=== PATIENT | female | born 1995 | race Caucasian/White ===

== ENCOUNTER 2017-08-11 15:29 | Emergency (ER) | payer OTHER ==
[2017-08-11 16:21] LABS: URINE HCG POC HCG NEGATIVE (Negative)
== END 2017-08-11 17:11 | disposition home or self-care (01) ==
LOC: ER 15:29
DX: R07.89 Other chest pain (principal); F17.210 Nicotine dependence, cigarettes, uncomplicated; Z88.1 Allergy status to other antibiotic agents; Z88.8 Allergy status to other drugs, medicaments and biological substances
CPT/HCPCS: 71110; 81025; 93005; 99284-25

== ENCOUNTER → 2019-06-02 | Outpatient (CLI) | payer OTHER ==
[2017-08-11 15:40] VITALS: BP 128/60
[~2019-06-02] MED LIST: IBUP-1060 PO
--- NOTE | 2019-06-02 17:03 | RAD ---
PELVIS COMPLETE History: Dyspareunia, menorrhagia, dysmenorrhea Comparison: None. Findings: Multiple transabdominal sonographic images of the pelvis are submitted. Uterus measured 7.3 x 3.8 x 3.3 cm. Endometrium measured 0.4 cm in thickness. Right ovary measured 3.1 x 2.4 x 2.9 cm with normal low resistance vascularity. Left ovary measured up to 6.2 x 4.9 x 4.9 cm, includes focus of abnormal echogenicity. There is a hypoechoic lesion with diffuse internal echoes of the left ovary on the order of 4.8 x 3 cm. There is normal low resistance vascularity of the left ovary, no significant hypervascularity of the hypoechoic lesion. No significant free fluid is demonstrated. Impression: 1. There is a hypoechoic lesion with diffuse internal echoes of the left ovary up to 4.8 cm which may be complex or hemorrhagic cyst although short-term follow-up such as in 2-3 months advised. There is no significant free fluid. Electronically signed by: Jon Cullen MD (06/02/2019 5:00 PM) [id number]
== END | disposition home or self-care (01) ==
LOC: US 15:21
PROVIDERS: ATTEND Obstetrics & Gynecology
DX: N83.8 Other noninflammatory disorders of ovary, fallopian tube and broad ligament (principal)
CPT/HCPCS: 76856

== ENCOUNTER → 2019-06-06 | Outpatient (CLI) | payer OTHER ==
[2017-08-11 15:40] VITALS: BP 128/60
[2019-06-06 07:50] LABS: BASO # 0.1 x10^3/uL (0.0-0.2); BASO % 1 % (0-3); EOS # 0.3 x10^3/uL (0.0-0.7); EOS % 4 % (0-3); HEMATOCRIT 43.2 % (36.0-47.0); HEMOGLOBIN 14.4 g/dL (12.0-15.5); LYMPH # 2.6 x10^3/uL (1.0-4.8); LYMPH % 35 % (24-48); MEAN CORPUSCULAR HEMOGLOBIN 29 pg (25-35); MEAN CORPUSCULAR HGB CONC 33 g/dL (31-37); MEAN CORPUSCULAR VOLUME 86 fL (79-100); MONO # 0.5 x10^3/uL (0.0-1.1); MONO % 7 % (0-9); NEUT % 54 % (31-73); PLATELET COUNT 255 x10^3/uL (140-400); RED BLOOD COUNT 5.04 x10^6/uL (3.50-5.40); RED CELL DISTRIBUTION WIDTH 15.2 % (11.5-14.5); WHITE BLOOD COUNT 7.5 x10^3/uL (4.0-11.0)
[2019-06-06 08:07] LABS: ALBUMIN 3.9 g/dL (3.4-5.0); ALBUMIN/GLOBULIN RATIO 1.3 (1.0-1.7); CALCIUM 8.9 mg/dL (8.5-10.1); CREATININE 0.6 mg/dL (0.6-1.0); GFR 122.8; TOTAL BILIRUBIN 0.1 mg/dL (0.2-1.0)
[2019-06-06 08:09] LABS: CHOLESTEROL/HDL RATIO 4.8
[2019-06-06 14:10] LABS: ESTRADIOL LEVEL 47.7 pg/mL (.); FSH 5.6 mIU/mL (.); LUTEINIZING HORMONE 20.7 mIU/mL (.); PROLACTIN 28.8 ng/mL (4.8-23.3)
[2019-06-07 00:07] LABS: HEMOGLOBIN A1C 5.3 % (4.8-5.6)
[2019-06-09 10:11] LABS: TESTOSTERONE FREE 0.62 ng/dL (0.10-0.85)
== END | disposition home or self-care (01) ==
LOC: LAB 07:23
PROVIDERS: ATTEND Obstetrics & Gynecology
DX: N92.0 Excessive and frequent menstruation with regular cycle (principal)
CPT/HCPCS: 36415; 80053; 80061; 82306; 82627; 82670; 83001; 83002; 83036; 83525; 84146; 84402; 84403; 84443; 85025

== ENCOUNTER → 2019-08-25 | Outpatient (CLI) | payer OTHER ==
[2017-08-11 15:40] VITALS: BP 128/60
--- NOTE | 2019-08-25 16:41 | RAD ---
PELVIS W/TV History: Pelvic pain, left ovarian cyst Comparison: June 02, 2019 Findings: Multiple transabdominal sonographic images of the pelvis are submitted. Uterus measured 4.2 x 3.3 x 9.1 cm. Endometrium measured 0.9 cm in thickness. Right ovary measured 2 x 3 x 1.7 cm with normal color flow and low resistance vascularity. Left ovary measured about 6 x 5 x 6.5 cm. There is persistent, avascular focus of abnormal echogenicity associated with the left ovary about 6.6 x 4.8 x 4.1 cm with diffuse internal echoes. This measures larger as previously about 4.8 x 3 x 3.6 cm. There is normal low resistance vascularity of the left ovary. There is very minimal free fluid in the cul-de-sac. Impression: 1. There is a larger focus of abnormal echogenicity associated with the left ovary with diffuse internal echoes, not significantly hypervascular. Given persistence and larger size rather than regression, pelvis MRI could be beneficial. If this is not performed, continued short-term follow-up such as in 2 months is recommended. Endometrioma would be included in the differential considerations. There is minimal free fluid in the cul-de-sac. Electronically signed by: Jon Cullen MD (08/25/2019 4:38 PM) [id number]
== END | disposition home or self-care (01) ==
LOC: US 10:00
PROVIDERS: ATTEND Obstetrics & Gynecology
DX: Z09 Encounter for follow-up examination after completed treatment for conditions other than malignant neoplasm (principal); N80.1 Endometriosis of ovary; R10.2 Pelvic and perineal pain; N83.202 Unspecified ovarian cyst, left side
CPT/HCPCS: 76830; 76856

== ENCOUNTER → 2019-09-02 | Outpatient (CLI) | payer OTHER ==
[2017-08-11 15:40] VITALS: BP 128/60
== END ==
LOC: LAB 07:49
PROVIDERS: ATTEND Obstetrics & Gynecology
DX: N83.202 Unspecified ovarian cyst, left side (principal)
CPT/HCPCS: 36415; 86304

== ENCOUNTER → 2019-09-14 | Outpatient (CLI) | payer OTHER ==
[2017-08-11 15:40] VITALS: BP 128/60
[~2019-09-14] MED LIST changes: +GADOTERATE 7.5 MMOL/15ML VIAL. IVP ONE
--- NOTE | 2019-09-14 10:01 | RAD ---
PELVIS WO/W CONTRAST: 09/14/2019 8:15 AM INDICATION: 24 years old Female. Left ovarian cyst COMPARISON: Pelvic ultrasound August 25, 2019. TECHNIQUE: Multiplanar multisequence MR imaging of the pelvis was performed before and following intravenous administration of gadolinium contrast agent. FINDINGS: UTERUS: Orientation: Anteverted. Size: 8.6 x 4.2 x 5.6 cm. Masses: None. Endometrium: 31 mm. There is a circumscribed T2 hyperintense area within the endometrium measuring 1.5 x 1.2 cm with low T1 signal. Fluid is noted within the endometrium. Junctional zone: Junctional zone measures up to 6 mm, within normal limits. Cervix: Unremarkable. RIGHT OVARY: 1.9 x 1.1 x 2.4 cm. No ovarian mass. LEFT OVARY: 6.1 x 6.9 x 5.7 cm. There are 2 circumscribed T1 hyperintense, nonenhancing masses with internal debris, largest of which measures 6.0 x 4.7 x 4.9 cm. No definite enhancing septations or mural nodularity. Layering dependent blood products are suspected with T2 signal hypointensity and mild T1 signal hyperintensity. FREE FLUID: There is a small amount of free fluid within the pelvis, physiologic in amount. URINARY BLADDER: Unremarkable. BOWEL: Visualized bowel unremarkable. LYMPH NODES: Unremarkable. BONES: No suspicious osseous abnormality. IMPRESSION: 1. Left ovarian mass has signal intensity most suggestive of a hemorrhagic cyst, although endometrioma could have similar appearance. Within the smaller T1 hyperintense lesion, there is a circumscribed nodule with intrinsic T1 signal hyperintensity and T2 signal hypointensity (on fat-saturated images) which could represent blood products or fat. This finding is along the dependent portion of the cyst, most suggestive of blood products. No fat fluid level is identified to suggest a dermoid. 2. Thickened endometrium with a circumscribed cystic process measuring 1.5 x 1.2 cm. Consideration may be given for blood products and correlation with menstrual cycle is recommended. Correlation with beta-hCG may be of benefit to exclude a gestational sac/early . 3. Small volume free fluid is identified within the pelvis appear simple. Electronically signed by: Danitza Roche MD (09/14/2019 9:59 AM) [facility]
== END ==
LOC: MRI 07:43
PROVIDERS: ATTEND Obstetrics & Gynecology
DX: N83.202 Unspecified ovarian cyst, left side (principal); R93.89 Abnormal findings on diagnostic imaging of other specified body structures
CPT/HCPCS: 72197; A9575

== ENCOUNTER → 2019-09-19 | Outpatient (CLI) | payer OTHER ==
[2017-08-11 15:40] VITALS: BP 128/60
[~2019-09-19] MED LIST changes: -GADOTERATE 7.5 MMOL/15ML VIAL. IVP ONE
[2019-09-19 16:38] LABS: BASO # 0.1 x10^3/uL (0.0-0.2); BASO % 1 % (0-3); EOS # 0.2 x10^3/uL (0.0-0.7); EOS % 2 % (0-3); HEMATOCRIT 39.2 % (36.0-47.0); HEMOGLOBIN 13.3 g/dL (12.0-15.5); LYMPH # 2.2 x10^3/uL (1.0-4.8); LYMPH % 20 % (24-48); MEAN CORPUSCULAR HEMOGLOBIN 29 pg (25-35); MEAN CORPUSCULAR HGB CONC 34 g/dL (31-37); MEAN CORPUSCULAR VOLUME 84 fL (79-100); MONO # 0.8 x10^3/uL (0.0-1.1); MONO % 7 % (0-9); NEUT # 7.7 x10^3/uL (1.8-7.7); NEUT % 70 % (31-73); PLATELET COUNT 277 x10^3/uL (140-400); RED BLOOD COUNT 4.68 x10^6/uL (3.50-5.40); RED CELL DISTRIBUTION WIDTH 14.2 % (11.5-14.5)
[2019-09-20 00:07] LABS: PROGESTERONE 20.6 ng/mL (.)
== END | disposition home or self-care (01) ==
LOC: LAB 15:51
PROVIDERS: ATTEND Nurse Practitioner Family
DX: Z32.01 Encounter for pregnancy test, result positive (principal)
CPT/HCPCS: 36415; 84144; 84702; 85025; 86592; 86703; 86762; 86850; 86900; 86901; 87340

== ENCOUNTER → 2019-09-20 | Outpatient (CLI) | payer OTHER ==
[2017-08-11 15:40] VITALS: BP 128/60
== END | disposition home or self-care (01) ==
LOC: SPEC 11:29
PROVIDERS: ATTEND Obstetrics & Gynecology
DX: Z32.01 Encounter for pregnancy test, result positive (principal)
CPT/HCPCS: 87086; 87491; 87591

== ENCOUNTER → 2019-10-14 | Outpatient (CLI) | payer OTHER ==
[2017-08-11 15:40] VITALS: BP 128/60
[2019-10-14 12:04] LABS: BASO # 0.1 x10^3/uL (0.0-0.2); BASO % 1 % (0-3); EOS # 0.2 x10^3/uL (0.0-0.7); EOS % 2 % (0-3); HEMATOCRIT 37.2 % (36.0-47.0); HEMOGLOBIN 12.6 g/dL (12.0-15.5); LYMPH % 18 % (24-48); MEAN CORPUSCULAR HEMOGLOBIN 29 pg (25-35); MEAN CORPUSCULAR HGB CONC 34 g/dL (31-37); MEAN CORPUSCULAR VOLUME 84 fL (79-100); MONO # 0.7 x10^3/uL (0.0-1.1); MONO % 6 % (0-9); NEUT # 8.1 x10^3/uL (1.8-7.7); NEUT % 73 % (31-73); PLATELET COUNT 229 x10^3/uL (140-400); RED CELL DISTRIBUTION WIDTH 14.8 % (11.5-14.5); WHITE BLOOD COUNT 11.1 x10^3/uL (4.0-11.0)
== END | disposition home or self-care (01) ==
LOC: LAB 10:02
PROVIDERS: ATTEND Obstetrics & Gynecology
DX: Z32.01 Encounter for pregnancy test, result positive (principal); O21.0 Mild hyperemesis gravidarum
CPT/HCPCS: 36415; 81220; 85025; 86592; 86703; 86762; 86850; 86900; 86901; 87340

== ENCOUNTER 2019-11-15 08:17 | Emergency (ER) | payer OTHER ==
[~2019-11-15] VITALS: Ht 162.6 cm; Wt 94.3 kg
[2019-11-15 10:39] LABS: BILIRUBIN,URINE NEGATIVE (NEG); CLARITY,URINE CLEAR; COLOR,URINE YELLOW; NITRITE,URINE NEGATIVE (NEG); PROTEIN,URINE NEGATIVE (NEG-TRACE); UROBILINOGEN,URINE 0.2 mg/dL (0.2 mg/dL)
[2019-11-15 10:50] LABS: SQUAMOUS EPITHELIAL CELL,UR MOD /LPF
[2019-11-15 10:51] LABS: BACTERIA,URINE FEW /HPF (0-FEW); RBC,URINE OCC /HPF (0-2); WBC,URINE OCC /HPF (0-4)
--- NOTE | 2019-11-15 11:30 | RAD ---
EXAM: Obstetrics sonogram. HISTORY: Groin pain and . TECHNIQUE: Sonographic imaging of a gravid uterus and the inguinal regions was performed. COMPARISON: 09/23/2019. FINDINGS: There is a single intrauterine fetus in transverse presentation with a normal heart rate of 145 bpm. There is a posterior placenta without evidence of placenta previa. The cervix is long and closed. The amniotic fluid index is normal at 10.2 cm. The anatomy is not formally assessed. The biparietal diameter is 2.77 cm, corresponding with 15 weeks and 0 days. The head circumference is 10.3 cm, corresponding with 14 weeks and 6 days. The abdominal circumference is 8.91 cm, corresponding with 15 weeks and 1 day. The femoral length is 1.63 cm, corresponding with 14 weeks and 6 days. The estimated gestational age patient combined ultrasound measurements is 15 weeks and 0 days. There is a large left ovarian cyst measuring 6.0 cm. There is normal blood flow within both ovaries. There is no pelvic free fluid. IMPRESSION: 1. Single intrauterine fetus with normal heart rate and gestational age patient also measurements of 15 weeks and 0 days. The gestational age based on LMP is 14 weeks and 5 days. 2. 6.0 cm left ovarian cyst. This is more simple in appearance compared to the prior exam dated 09/23/2019, possibly due to differences in imaging technique. The overall size is not signally changed. Continued short-term follow-up is recommended. Electronically signed by: Rocio Jordan MD (11/15/2019 11:26 AM) [id number]
[2019-11-15 12:00] VITALS: BP 120/66
--- NOTE | 2019-11-15 12:48 | PHYS DOC ---
Past Medical History Past Medical History: No Pertinent History, Anxiety Past Surgical History: Tonsillectomy Smoking Status: Former Smoker Alcohol Use: None Drug Use: None General Adult EDM: Chief Complaint: ABDOMINAL PAIN IN HPI: HPI: Patient is a 24-year-old female who is approximately 14 weeks who presents with lower abdominal discomfort. She denies any vaginal bleeding or discharge. She has not had any dysuria or gross hematuria. She denies fever chills or sweats. She has not had any nausea or vomiting secondary to the pain. She states she has had an initial ultrasound which apparently was okay. [] Review of Systems: Review of Systems: Constitutional: Denies fever or chills. [] Eyes: Denies change in visual acuity. [] HENT: Denies nasal congestion or sore throat. [] Respiratory: Denies cough or shortness of breath. [] Cardiovascular: Denies chest pain or edema. [] GI: Per HPI [] : Denies dysuria. [] Musculoskeletal: Denies back pain or joint pain. [] Integument: Denies rash. [] Neurologic: Denies headache, focal weakness or sensory changes. [] Endocrine: Denies polyuria or polydipsia. [] Lymphatic: Denies swollen glands. [] Psychiatric: Denies depression or anxiety. [] Heart Score: Risk Factors: Risk Factors: DM, Current or recent (<one month) smoker, HTN, HLP, family history of CAD, obesity. Risk Scores: Score 0 - 3: 2.5% MACE over next 6 weeks - Discharge Home Score 4 - 6: 20.3% MACE over next 6 weeks - Admit for Clinical Observation Score 7 - 10: 72.7% MACE over next 6 weeks - Early Invasive Strategies Allergies: Allergies: Allergies Coded Allergies Type Severity Reaction Last Updated Verified amoxicillin Allergy Mild vomiting 05/30/15 Yes clavulanic acid Allergy Mild vomiting 05/30/15 Yes Physical Exam: PE: Constitutional: Well developed, well nourished, no acute distress, non-toxic appearance. [] HENT: Normocephalic, atraumatic, bilateral external ears normal, oropharynx moist, no oral exudates, nose normal. [] Eyes: PERRLA, EOMI, conjunctiva normal, no discharge. [] Neck: Normal range of motion, no tenderness, supple, no stridor. [] Cardiovascular:Heart rate regular rhythm, no murmur [] Lungs & Thorax: Bilateral breath sounds clear to auscultation [] Abdomen: Bowel sounds normal, soft, no tenderness, no masses, no pulsatile masses. [] Skin: Warm, dry, no erythema, no rash. [] Back: No tenderness, no CVA tenderness. [] Extremities: No tenderness, no cyanosis, no clubbing, ROM intact, no edema. [] Neurologic: Alert and oriented X 3, normal motor function, normal sensory function, no focal deficits noted. [] Psychologic: Affect normal, judgement normal, mood normal. [] Current Patient Data: Labs: Laboratory Tests Test 11/15/19 09:45 Urine Collection Type Void Urine Color Yellow Urine Clarity Clear Urine pH 8.0 (<5.0-8.0) Urine Specific Divide 1.010 (1.000-1.030) Urine Protein Negative mg/dL (NEG-TRACE) Urine Glucose (UA) Negative mg/dL (NEG) Urine Ketones (Stick) Negative mg/dL (NEG) Urine Blood Negative (NEG) Urine Nitrite Negative (NEG) Urine Bilirubin Negative (NEG) Urine Urobilinogen Dipstick 0.2 mg/dL (0.2 mg/dL) Urine Leukocyte Esterase Negative (NEG) Urine RBC Occ /HPF (0-2) Urine WBC Occ /HPF (0-4) Urine Squamous Epithelial Cells Mod /LPF Urine Bacteria Few /HPF (0-FEW) Vital Signs: Vital Signs Date Time Temp Pulse Resp B/P (MAP) Pulse Ox O2 Delivery O2 Flow Rate FiO2 11/15/19 09:55 98.9 77 16 136/60 (85) 100 Room Air 98.9 EKG: EKG: [] Radiology/Procedures: Radiology/Procedures: []PROCEDURE: PREG MORE THAN OR EQ TO 14 WKS EXAM: Obstetrics sonogram. HISTORY: Groin pain and . TECHNIQUE: Sonographic imaging of a gravid uterus and the inguinal regions was performed. COMPARISON: 09/23/2019. FINDINGS: There is a single intrauterine fetus in transverse presentation with a normal heart rate of 145 bpm. There is a posterior placenta without evidence of placenta previa. The cervix is long and closed. The amniotic fluid index is normal at 10.2 cm. The anatomy is not formally assessed. The biparietal diameter is 2.77 cm, corresponding with 15 weeks and 0 days. The head circumference is 10.3 cm, corresponding with 14 weeks and 6 days. The abdominal circumference is 8.91 cm, corresponding with 15 weeks and 1 day. The femoral length is 1.63 cm, corresponding with 14 weeks and 6 days. The estimated gestational age patient combined ultrasound measurements is 15 weeks and 0 days. There is a large left ovarian cyst measuring 6.0 cm. There is normal blood flow within both ovaries. There is no pelvic free fluid. IMPRESSION: 1. Single intrauterine fetus with normal heart rate and gestational age patient also measurements of 15 weeks and 0 days. The gestational age based on LMP is 14 weeks and 5 days. 2. 6.0 cm left ovarian cyst. This is more simple in appearance compared to the prior exam dated 09/23/2019, possibly due to differences in imaging technique. The overall size is not signally changed. Continued short-term follow-up is recommended. Course & Med Decision Making: Course & Med Decision Making Pertinent Labs and Imaging studies reviewed. (See chart for details) [] Dragon Disclaimer: Dragon Disclaimer: This electronic medical record was generated, in whole or in part, using a voice recognition dictation system. Departure Departure Impression: Primary Impression: Abdominal pain in Qualified Codes: O26.891 - Other specified related conditions, first trimester; R10.9 - Unspecified abdominal pain Additional Impression: Ovarian cyst affecting in first trimester, antepartum Disposition: 01 HOME, SELF-CARE Condition: STABLE Referrals: VAUGHN NARAYANAN MD (PCP) Patient Instructions: Abdominal Pain During Additional Instructions: Return to the emergency department with any new or concerning symptoms Justicifation of Admission Dx: Justifications for Admission: Justification of Admission Dx: DELFINO Bell DO Nov 15, 2019 12:48
== END 2019-11-15 13:00 ==
LOC: ER 08:17
DX: O34.82 Maternal care for other abnormalities of pelvic organs, second trimester (principal); N83.202 Unspecified ovarian cyst, left side; Z87.891 Personal history of nicotine dependence; Z88.1 Allergy status to other antibiotic agents; Z3A.15 15 weeks gestation of pregnancy; Z88.8 Allergy status to other drugs, medicaments and biological substances
CPT/HCPCS: 76805; 81001; 99285-25

== ENCOUNTER → 2019-12-16 | Outpatient (CLI) | payer OTHER ==
--- NOTE | 2019-12-16 16:49 | RAD ---
EXAM: Ultrasound OB Greater than 14 weeks INDICATION: Second trimester , size and dates. TECHNIQUE: Real-time obstetrical ultrasound was performed with permanent freeze-frame documentation. COMPARISON: None. FINDINGS: POSITION: Variable HEART RATE: 149 bpm LANDEN: 14.4 cm PLACENTA: Posterior CERVICAL LENGTH: Not measured MATERNAL UTERUS: Unremarkable. MATERNAL ADNEXA: Unremarkable. AGE/DATES: Gestational Age by LMP: 19 weeks 3 days Gestation Age by US: 19 weeks 1 day EDC by LMP: May 08, 2020 EDC by US: May 10, 2020 WEIGHT: 275 grams +/- 41 grams PERCENTILE WEIGHT: Not estimated BIOMETRIC PARAMETERS: BPD: 4.3 cm corresponding with 19 weeks 1 day HC: 16.3 cm corresponding with 19 weeks 1 day AC: 13.7 cm corresponding with 19 weeks 1 day FL: 3.0 cm corresponding with 19 weeks 1 day ANATOMY: CARDIAC: Normal four chamber heart. Normal right and left ventricular outflow tracts. UMBILICAL CORD: Normal 3 vessel cord. Normal cord insertion. BRAIN: Unremarkable. NOSE/LIPS: Unremarkable. SPINE: Unremarkable. EXTREMITIES: Unremarkable. STOMACH: Unremarkable. KIDNEYS: Unremarkable. BLADDER: Unremarkable. IMPRESSION: Normal OB ultrasound demonstrating a single viable fetus in variable position. Estimated gestational age of 19 weeks 1 day and EDC of May 10, 2020. Electronically signed by: Umair Stoner MD (12/16/2019 4:47 PM) [id number]
== END | disposition home or self-care (01) ==
LOC: US 09:42
PROVIDERS: ATTEND Obstetrics & Gynecology
DX: O26.842 Uterine size-date discrepancy, second trimester (principal); Z3A.19 19 weeks gestation of pregnancy
CPT/HCPCS: 76805

== ENCOUNTER → 2020-05-10 | Outpatient (CLI) | payer OTHER | LOC: LAB 13:57 | PROVIDERS: ATTEND Obstetrics & Gynecology | DX: Z20.822 Contact with and (suspected) exposure to COVID-19 (principal) | CPT/HCPCS: U0003 ==

== ENCOUNTER 2020-05-13 19:12 | Inpatient (IN) | payer OTHER ==
[~2020-05-13] VITALS: Ht 162.6 cm; Wt 112.5 kg
[2020-05-13] MEDS ORDERED: ONDANSETRON PF 4 MG/2 ML VIAL. IVP PRN (19:15)
[2020-05-13] MEDS ORDERED: TERBUTALINE 1 MG/ML VIAL. SQ PRN (19:15)
[2020-05-13] MEDS ORDERED: MAG HYDROX/ALUMINUM HYD/SIMETH 30 ML ORAL.SUSP PO PRN (19:15)
[2020-05-13] MEDS ORDERED: OXYTOCIN 30 UNIT/500 ML PREMIX 500 ML IV PRN (19:15)
[2020-05-13] MEDS ORDERED: LIDOCAINE 1% PF 30 ML VIAL. INJ PRN (19:15)
[2020-05-13] MEDS ORDERED: IBUPROFEN 400 MG TABLET. PO PRN (19:15)
[2020-05-13] MEDS ORDERED: fentaNYL PF VIAL 100 MCG/2 ML VIAL IVP PRN (19:15)
[2020-05-13] MEDS ORDERED: 0.9 % SODIUM CHLORIDE 10 ML DISP.SYRIN. IV PRN (19:15)
[2020-05-13] MEDS ORDERED: ACETAMINOPHEN 325 MG TABLET. PO PRN (19:15)
[2020-05-13] MEDS ORDERED: DINOPROSTONE 10 MG SUPP.VAG VG ONE (19:15)
[2020-05-13] MEDS: IV RINGERS,LACTATED 1000ML 1,000 ML IV PRN (20:19)
[2020-05-13 20:37] LABS: BILIRUBIN,URINE NEGATIVE (NEG); CLARITY,URINE CLOUDY; COLOR,URINE YELLOW; NITRITE,URINE NEGATIVE (NEG); PH,URINE 6.5 (<5.0-8.0); PROTEIN,URINE 30 mg/dL (NEG-TRACE)
[2020-05-13 20:37] LABS: BASO # 0.1 x10^3/uL (0.0-0.2); BASO % 1 % (0-3); EOS # 0.3 x10^3/uL (0.0-0.7); EOS % 3 % (0-3); HEMATOCRIT 35.3 % (36.0-47.0); HEMOGLOBIN 12.1 g/dL (12.0-15.5); LYMPH # 2.2 x10^3/uL (1.0-4.8); LYMPH % 19 % (24-48); MEAN CORPUSCULAR HEMOGLOBIN 29 pg (25-35); MEAN CORPUSCULAR HGB CONC 34 g/dL (31-37); MEAN CORPUSCULAR VOLUME 83 fL (79-100); MONO # 0.9 x10^3/uL (0.0-1.1); MONO % 8 % (0-9); NEUT # 8.3 x10^3/uL (1.8-7.7); NEUT % 70 % (31-73); PLATELET COUNT 223 x10^3/uL (140-400); RED BLOOD COUNT 4.24 x10^6/uL (3.50-5.40); RED CELL DISTRIBUTION WIDTH 17.4 % (11.5-14.5); WHITE BLOOD COUNT 11.9 x10^3/uL (4.0-11.0)
[2020-05-13 20:43] LABS: BACTERIA,URINE MANY /HPF (0-FEW); RBC,URINE >40 /HPF (0-2)
[2020-05-13 21:01] VITALS: BP 119/66
[2020-05-13] MEDS ORDERED: diphenhydrAMINE HCL 25 MG CAPSULE PO ONE (23:45)
[2020-05-14] MEDS ORDERED: PENICILLIN G K 5,000,000 UNIT in IV DEXTROSE 5% 100ML 100 ML IV ONE
[2020-05-14] MEDS: IV RINGERS,LACTATED 1000ML 1,000 ML IV PRN ×2 (03:12→14:36)
[2020-05-14] MEDS ORDERED: PENICILLIN G K 2,500,000 UNIT in IV DEXTROSE 5% 50 ML IV SCH (04:00)
[2020-05-14] MEDS ORDERED: OXYTOCIN 30 UNIT/500 ML PREMIX 500 ML IV PRN ×2 (06:00→21:45)
--- NOTE | 2020-05-14 14:16 | PDOC1 ---
OB - History Hx of Present Care: Good Care Ultrasounds: No ultrasounds Obstetrical Complications: Gestational Diabetes Medical Complications: None Past Family/Social History * Past Medical, Surgical, Family and Obstetric Histories reviewed from chart. Rubella: Immune RPR/VDRL: Negative GBS Status: Positive HBsAG: Negative OB - Chief Complaint & HPI Date of Admission: Date of Admission: May 13, 2020 at 19:12 Chief Complaint/History : 1 Para: 0 EGA: 39 Reason for admission: induction of labor Indication for induction: maternal discomfort Admission Nurse Assessment Rev: Yes OB - Admission Exam Physical Exam Vitals: VS - Last 72 Hours, by Label Date Time Temp Pulse Resp B/P (MAP) Pulse Ox O2 Delivery O2 Flow Rate FiO2 05/14/20 03:38 18 Room Air 05/13/20 21:01 99.1 94 18 119/66 (83) 98 Room Air 99.1 HEENT: Normal Heart: Regular Rate Lungs: Clear Abdomen: Gravid, Non tender, Soft Extremities: Edema Reflexes: Normal Cervical Dilatation: 2cm Effacement: 50% Station: -3 Membranes: Intact Heart Rate: Normal Accelerations: Accelerations Present Decelerations: No decelerations Contractions on Admission: None Text A: 40 wks IUP GBS positive IOL secondary maternal discomforts P: Admit IOL cervidil, then pitocin in am. Start Pen G in am. EWA BELLO Jr, MD May 14, 2020 14:16
[2020-05-14] MEDS ORDERED: ROPIVacaine 0.2% PF 10 ML VIAL. ONE ×3 (14:44→16:00)
[2020-05-14] MEDS ORDERED: L&D EPIDURAL SYRINGE 50 ML ONE ×2 (14:45→18:25)
[2020-05-14] MEDS ORDERED: L&D EPIDURAL 50 ML SYRINGE. ONE (16:00)
[2020-05-14] MEDS ORDERED: ePHEDrine PF IN SALINE 50 MG/10 ML SYRINGE. IV ONE (16:04)
[2020-05-14] MEDS ORDERED: LIDOCAINE 2% PF 5 ML VIAL. ONE (19:37)
--- NOTE | 2020-05-14 21:42 | PDOC ---
VAGINAL DELIVERY DATE DATE: 05/14/20 TIME: 21:41 : 1 Para: 1 EGA: 40 VAGINAL DELIVERY: VTX VACCUM ASSISTED: No PLACENTA: Spontaneous 8/9 SEX: Male WEIGHT Weight [ 7 lbs. 13 oz] Nuchal Cord: No Amniotic Fluid: Clear PAIN: Epidural EPISIOTOMY: No EXTENSION: Yes (2nd degree midline laceration) REPAIRED WITH 2-0 vicryl EBL 400 ml COMPLICATIONS none CONDITION pt. stable Signs of Intrauterine Infectio: None Shoulder Dystocia: No EWA BELLO Jr, MD May 14, 2020 21:42
[2020-05-14] MEDS ORDERED: MAGNESIUM HYDROXIDE 2,400 MG/30 ML ORAL.SUSP. PO PRN (21:45)
[2020-05-14] MEDS ORDERED: BENZOCAINE 20% TOPICAL AEROSOL SPRAY 57GM CAN. TP PRN ×2 (21:45)
[2020-05-14] MEDS ORDERED: TDaP (Adacel) per PROTOCOL. MC PRN (21:45)
[2020-05-14] MEDS ORDERED: HYDROCORTISONE 1% TOPICAL OINTMENT 30GM TUBE. TP PRN (21:45)
[2020-05-14] MEDS ORDERED: PHENYLEPH/MINERAL OIL/PETROLAT RECTAL OINTMENT TUBE. RC PRN (21:45)
[2020-05-14] MEDS ORDERED: oxyCODONE/APAP 5/325 1 TAB TABLET PO PRN (21:45)
[2020-05-14] MEDS ORDERED: MAG HYDROX/ALUMINUM HYD/SIMETH 30 ML ORAL.SUSP PO PRN (21:45)
[2020-05-14] MEDS ORDERED: ZOLPIDEM 5 MG TABLET. PO PRN (21:45)
[2020-05-14] MEDS ORDERED: SIMETHICONE 80 MG TAB.CHEW PO PRN (21:45)
[2020-05-14] MEDS ORDERED: ACETAMINOPHEN 325 MG TABLET. PO PRN (21:45)
[2020-05-14] MEDS ORDERED: MMR per PROTOCOL. MC PRN (21:45)
[2020-05-14] MEDS ORDERED: diphenhydrAMINE HCL 25 MG CAPSULE PO PRN (21:45)
[2020-05-14] MEDS ORDERED: 0.9 % SODIUM CHLORIDE 10 ML DISP.SYRIN. IV PRN (21:45)
[2020-05-14] MEDS: IBUPROFEN 400 MG TABLET. PO PRN (23:50)
[2020-05-15 00:34] VITALS: BP 128/72
[2020-05-15 05:18] VITALS: BP 144/84
[2020-05-15 06:16] LABS: BASO # 0.1 x10^3/uL (0.0-0.2); BASO % 1 % (0-3); EOS # 0.1 x10^3/uL (0.0-0.7); EOS % 1 % (0-3); HEMOGLOBIN 10.3 g/dL (12.0-15.5); LYMPH # 2.1 x10^3/uL (1.0-4.8); LYMPH % 16 % (24-48); MEAN CORPUSCULAR HEMOGLOBIN 28 pg (25-35); MEAN CORPUSCULAR HGB CONC 33 g/dL (31-37); MEAN CORPUSCULAR VOLUME 83 fL (79-100); MONO # 1.1 x10^3/uL (0.0-1.1); MONO % 8 % (0-9); NEUT % 74 % (31-73); PLATELET COUNT 169 x10^3/uL (140-400); RED BLOOD COUNT 3.71 x10^6/uL (3.50-5.40); RED CELL DISTRIBUTION WIDTH 17.8 % (11.5-14.5); WHITE BLOOD COUNT 13.4 x10^3/uL (4.0-11.0)
[2020-05-15] MEDS ORDERED: FERROUS SULFATE 325 MG TABLET. PO SCH (08:00)
[2020-05-15] MEDS ORDERED: MULTIVITAMIN with MINERAL TABLET. PO SCH (09:00)
--- NOTE | 2020-05-15 15:50 | NUR ---
[facility]20 [facility] see [facility] chart
[2020-05-15] MEDS: DOCUSATE SODIUM 100 MG CAPSULE. PO PRN (21:08)
[2020-05-15] MEDS: IBUPROFEN 400 MG TABLET. PO PRN (21:09)
[2020-05-15 22:00] VITALS: BP 110/72
[2020-05-16 04:50] VITALS: BP 119/74
[2020-05-16 08:00] VITALS: BP 128/81
[2020-05-16] MEDS: IBUPROFEN 400 MG TABLET. PO PRN (08:14)
[2020-05-16] MEDS: DOCUSATE SODIUM 100 MG CAPSULE. PO PRN (08:14)
--- NOTE | 2020-05-16 11:27 | PDOC3 ---
OB DISCHARGE SUMMARY DATE OF ADMISSION: 05/13/20 DATE OF DISCHARGE: 05/16/20 REASON FOR ADMISSION: Onset of labor INTRAPARTUM PROCEDURES: Spontanous Vag Deliv DISCHARGE DIAGNOSIS: Term Delivered DISCHARGE INFORMATION: Activity (ad gillina), Diet (regular), Instructions (pelvic rest x 6 wks) HOSPITAL COURSE Term gestation delivered vaginally without complications. EWA BELLO Jr, MD May 16, 2020 11:27
--- NOTE | 2020-05-16 11:29 | DISCH ---
DISCHARGE INSTRUCTIONS Condition on Discharge Condition on Discharge: Stable Activity After Discharge Activity Instructions for Disc: Activity as tolerated Driving Instructions after Dis: Do not drive today Diet after Discharge Diet after Discharge: Regular Contacting the DRJudson after DC Call your doctor for: Concerns you may have Follow-Up Follow up with: Dr. Márquez in 6 wks EWA MÁRQUEZ Jr, MD May 16, 2020 11:29
[2020-05-16 13:50] VITALS: BP 120/69
--- NOTE | 2020-05-16 14:45 | NUR ---
Patient ambulated down to vehicle with family and nursing staff. No questions verbalized at this time about home care.
== END 2020-05-16 14:45 | disposition home or self-care (01) | DRG 807 ==
LOC: 3 SO LND 19:12 → 3 NORTH 05-15 00:15
PROVIDERS: ADMIT Obstetrics & Gynecology; ATTEND Obstetrics & Gynecology
PROC: 10E0XZZ Delivery of Products of Conception, External Approach (ICD-10-PCS; principal; 2020-05-14)
PROC: 0KQM0ZZ Repair Perineum Muscle, Open Approach (ICD-10-PCS; 2020-05-14)
PROC: 3E0R3BZ Introduction of Anesthetic Agent into Spinal Canal, Percutaneous Approach (ICD-10-PCS; 2020-05-14)
PROC: 00HU33Z Insertion of Infusion Device into Spinal Canal, Percutaneous Approach (ICD-10-PCS; 2020-05-14)
DX: O99.824 Streptococcus B carrier state complicating childbirth (principal); Z37.0 Single live birth; O70.1 Second degree perineal laceration during delivery; Z3A.39 39 weeks gestation of pregnancy; Z86.32 Personal history of gestational diabetes
CPT/HCPCS: 36415; 81001; 85025; 86592; 86850; 86900; 86901; 87086; J2405; J2540; J2590; J2795; J3010; J3490; J7060; J7120; G0378; Q0163